=== PATIENT | male | born 1960 | race Caucasian/White ===

== ENCOUNTER 2016-08-12 03:56 | Observation (INO) ==
[2016-08-12] MEDS ORDERED: MORPHINE IV ONE (04:18)
[2016-08-12] MEDS ORDERED: ZOFRAN IV ONE (04:19)
[2016-08-12] MEDS ORDERED: TORADOL ONE (04:37)
[2016-08-12] MEDS ORDERED: NS 1,000 ML ONE (04:37)
[2016-08-12] MEDS ORDERED: DILAUDID ONE (04:38)
[2016-08-12 04:40] LABS: MANUAL DIFF NEEDED? NO
[2016-08-12 04:40] LABS: URINE CULTURE NEEDED? NO; URINE MICRO REVIEW NEEDED? NO; URINE SOURCE CLEAN CATCH
[2016-08-12] MEDS ORDERED: OFIRMEV 1000 MG/ISOTONIC SOLN 1,000 MG/100 ML BOTTLE ONE (04:43)
[2016-08-12] MEDS ORDERED: DILAUDID IV ONE ×2 (04:47→04:50)
[2016-08-12 04:48] LABS: BASO% 0.4 % (0.0-0.8); EOS% 3.6 % (0.0-10.0); HEMATOCRIT 45.2 % (42.0-52.0); HEMOGLOBIN 15.6 g/dL (14.0-18.0); IMM GRAN# 0.03 X1000 (0.0-0.04); IMM GRAN% 0.3 % (0.0-0.5); LYMPH# 2.02 X1000 (1.2-3.4); MCH 31.3 PG (27-31); MCHC 34.5 g/dL (33-37); MCV 90.6 FL (81-99); MONO# 1.19 X1000 (0.11-0.59); MONO% 10.6 % (1.7-9.3); MPV 9.8 FL (7.4-10.4); NEUT% 67.1 % (42.2-75.2); PLT 237 X1000 (130-400); RBC 4.99 XMIL (4.7-6.1)
[2016-08-12] MEDS ORDERED: NS 1,000 ML IV ONE (04:48)
[2016-08-12] MEDS ORDERED: TORADOL IV ONE (04:48)
[2016-08-12 04:49] LABS: BILIRUBIN URINE NEGATIVE (NEGATIVE); BLOOD URINE MODERATE (NEGATIVE); COLOR YELLOW; GLUCOSE URINE NEGATIVE (NEGATIVE); LEUKOCYTES URINE NEGATIVE (NEGATIVE); NITRITE URINE NEGATIVE (NEGATIVE); PH URINE 5.5; PROTEIN URINE TRACE mg/dL (NEGATIVE); SP GRAVITY URINE 1.026; TURBIDITY URINE CLEAR (CLEAR); UROBILINOGEN URINE 3 mg/dL (NORMAL)
[2016-08-12 04:50] LABS: UR EPITHELIAL CELLS <10 /HPF (<10); URINE BACTERIA NEGATIVE /HPF; URINE RBC <10 /HPF (<10); URINE WBC <10 /HPF (<10)
[2016-08-12] MEDS ORDERED: OFIRMEV 1000 MG/ISOTONIC SOLN 1,000 MG/100 ML BOTTLE IV ONE (04:50)
[2016-08-12] MEDS ORDERED: FLOMAX ONE (04:51)
[2016-08-12] MEDS ORDERED: FLOMAX PO ONE (04:56)
[2016-08-12] MEDS ORDERED: OXY IR PO PRN (04:57)
[2016-08-12] MEDS ORDERED: COMPAZINE IV PRN (04:57)
[2016-08-12 04:59] LABS: ALBUMIN 3.9 g/dL (3.5-5.0); CALCIUM 9.3 mg/dL (8.8-10.2); POTASSIUM 4.4 mmol/L (3.5-5.1); TOTAL BILIRUBIN 0.56 mg/dL (0.20-1.00); TOTAL PROTEIN 7.7 g/dL (6.3-8.3)
[2016-08-12] MEDS ORDERED: TORADOL IV SCH (05:00)
--- NOTE | 2016-08-12 05:22 | PROVIDER DOCUMENTATION ---
HPI-Male Problem - General Chief Complaint: Flank Pain Stated Complaint: KIDNEY STONE Time Seen by Provider: 08/12/16 04:18 Source: patient Unable to obtain history due to:: urgency Allergies/Adverse Reactions: Patient Allergies Allergy/AdvReac Type Severity Reaction Status Date / Time Sulfa (Sulfonamide Allergy Mild RASH Verified 08/07/16 15:42 Antibiotics) vancomycin Allergy Unknown Unknown Verified 08/07/16 15:42 Home Medications: Home Medication List Medication Instructions Recorded Confirmed Last Taken Type Albuterol 0.5% INH Conc [Albuterol 2.5 mg INH Q4H PRN PRN 08/07/16 08/07/16 Unknown History 0.5% INH Conc For Hyperkalemia] Aspirin 81 mg PO DAILY 08/07/16 08/07/16 08/07/16 History Hydrocodone/APAP 7.5 mg/325 mg 1 each PO Q6H PRN PRN #20 tablet 08/07/16 Unknown Rx [[place]-7.5] Ondansetron [Zofran] 4 mg PO Q6H PRN PRN #20 tablet 08/07/16 Unknown Rx Tamsulosin [Flomax] 0.4 mg PO DAILY #20 capsule 08/07/16 Unknown Rx Oxycodone/APAP 10 mg/325 mg 1 each PO Q6H PRN #12 tablet 08/10/16 Unknown Rx [Percocet-10] Promethazine [Phenergan] 25 mg PO Q6H PRN PRN #20 tablet 08/10/16 Unknown Rx - History of Present Illness-Male Nature of Presenting Problem: He was seen earlier this week with a 5.3 sm obstructing kidney stone, referred to Urology,,,,,,,,,,,,,,,,,,,,,,,,,,,,,,,,(Dr. Rivera) but could not be seen due to insurance issues. Tonight he has developed extreme pain, diaphoresis, vomiting , etc. Location of Complaint: reports: left flank Radiation: reports: urethral, scrotal Quality of Pain: reports: sharp, tearing Severity in ED: reports: severe Onset/Duration: reports: just prior to arrival Timing: reports: still present Context/Activities at Onset: reports: none Urinary Symptoms: reports: urgency Associated Symptoms: reports: diaphoresis, nausea Similar Symptoms Previously?: Yes Recently seen or treated by another doctor?: Yes (see HPI) Review of Systems - Adult - REVIEW OF SYSTEMS - ADULT Constitutional: reports: see HPI, chills Eyes: reports: no symptoms reported Ears, Nose, Mouth & Throat: reports: no symptoms reported Cardiovascular: reports: no symptoms reported Respiratory: reports: no symptoms reported Gastrointestinal: reports: no symptoms reported Genitourinary: reports: no symptoms reported Musculoskeletal: reports: no symptoms reported Integumentary: reports: no symptoms reported Neurological: reports: no symptoms reported Psychiatric: reports: no symptoms reported Endocrine: reports: no symptoms reported Hematologic/Lymphatic: reports: no symptoms reported Allergic/Immunologic: reports: no symptoms reported Past History - Adult - PAST MEDICAL HISTORY-ADULT Review of Records: reports: Old Records Reviewed, Nursing Assessment Review Major Childhood Illnesses: reports: denies history Cardiovascular: reports: denies history Respiratory: reports: denies history Gastrointestinal: reports: denies history Genitourinary: reports: kidney stones Musculoskeletal: reports: denies history Neurological: reports: denies history Endocrine/Immune: reports: denies history Other Conditions: reports: denies history - PRIOR SURGERIES/PROCEDURES Surgical/Procedure History: reports: reviewed, not pertinent - IMMUNIZATION STATUS Childhood Immunizations: See Nurse Assessment Flu Vaccine: See Nurse Assessment - FAMILY HISTORY Family History: reviewed, not pertinent Physical Exam-General - PHYSICAL EXAM-ADULT Initial Vital Signs Reviewed: Yes - CONSTITUTIONAL General Appearance: severe distress, obese - EYES Eyes: PERRL/EOMI, pink conjunctivae - HEAD, EARS, NOSE, MOUTH & THROAT HENMT: normocephalic/atraumatic - NECK Neck: non-tender, full range of motion, supple - RESPIRATORY Respiratory: chest non-tender, lungs clear, normal breath sounds - CARDIOVASCULAR Cardiovascular: normal peripheral pulses, regular rate, rhythm, no edema - GASTROINTESTINAL (ABDOMEN) Abdominal Exam: normal bowel sounds, guarding, tenderness - MUSCULOSKELETAL Back Exam: normal inspection, CVA tenderness. negative: no CVA tenderness Extremity: normal range of motion, no pedal edema Peripheral Pulses: radial (R): 3+, radial (L): 3+ - SKIN Integumentary: diaphoresis - NEUROLOGIC Neurologic: grossly normal - PSYCHIATRIC Psych/Mental Status: normal mood/affect Progress - PLAN OF CARE/RESULTS Progress/Plan/Lab Results: Vital Signs - 8 hr 08/12/16 03:59 Temperature 97.8 F Pulse Rate 83 Respiratory Rate 20 Blood Pressure 170/92 O2 Sat by Pulse Oximetry 93 L Laboratory Results - last 24 hr 08/12/16 08/12/16 08/12/16 04:11 04:11 04:29 WBC 11.24 H RBC 4.99 Hgb 15.6 Hct 45.2 MCV 90.6 MCH 31.3 H MCHC 34.5 RDW Std Deviation 12.7 Plt Count 237 MPV 9.8 Immature Gran % (Auto) 0.3 Neut % (Auto) 67.1 Lymph % (Auto) 18.0 L [place] % (Auto) 10.6 H Eos % (Auto) 3.6 Baso % (Auto) 0.4 Immature Gran # (Auto) 0.03 Neut # (Auto) 7.56 H Lymph # (Auto) 2.02 [place] # (Auto) 1.19 H Eos # (Auto) 0.40 Baso # (Auto) 0.04 Sodium 142 Potassium 4.4 Chloride 101 Carbon Dioxide 24 L Anion Gap 17 BUN 14 Creatinine 1.3 H Estimated GFR/1.73 m2 58 BUN/Creatinine Ratio 11 Glucose 119 H Calculated Osmolality 285 Calcium 9.3 Total Bilirubin 0.56 AST 38 H ALT 38 Alkaline Phosphatase 78 Total Protein 7.7 Albumin 3.9 Globulin 3.8 Albumin/Globulin Ratio 1.0 Urine Source CLEAN CATCH Urine Color YELLOW Urine Turbidity CLEAR Urine pH 5.5 Ur Specific [place] 1.026 Urine Protein TRACE A Ur Glucose (Stick) NEGATIVE Ur Ketones (Stick) TRACE A Urine Blood MODERATE A Urine Nitrite NEGATIVE Urine Bilirubin NEGATIVE Urobilinogen Dipstick 3 A Urine Leukocytes NEGATIVE Urine WBC (Auto) <10 Urine RBC (Auto) <10 U Epithel Cells (Auto) <10 Urine Bacteria (Auto) NEGATIVE Orders Category Date Time Status Admit - [facility] Routine AdmDCTranf 08/12/16 04:57 Ordered Activity - Up with Assistance ORDERED Care 08/12/16 04:57 Active Apply Mechanical Device [QM] ORDERED Care 08/12/16 04:57 Active Intake and Output-Strict ORDERED Care 08/12/16 04:57 Active Nursing- MD Consult Request ROUTINE Care 08/12/16 04:58 Active Vital Signs Order Q 8-HR ASSESS Care 08/12/16 04:57 Active Physician/Provider Consults Routine Cons 08/12/16 04:57 Ordered NPO Diet 08/12/16 04:57 Active BASIC METABOLIC PANEL [CHEM] Routine Lab 08/13/16 06:00 Ordered CBC WITH DIFF [HEME] Routine Lab 08/13/16 06:00 Ordered CBC WITH ELECTRONIC DIFF [HEME] Stat Lab 08/12/16 04:11 Completed COMPREHENSIVE METABOLIC PANEL [CHEM] Stat Lab 08/12/16 04:11 Completed UA NIMS W/REFLEX CULT [URINALYSIS] Stat Lab 08/12/16 04:29 Completed 0.9% Sodium Chloride Inj [Ns] 1,000 ml Med 08/12/16 04:37 Discontinued .ROUTE As Directed 0.9% Sodium Chloride Inj [Ns] 1,000 ml Med 08/12/16 04:57 Active IV 175 mls/hr 0.9% Sodium Chloride Inj [Ns] 1,000 ml Med 08/12/16 04:48 Active IV 999 mls/hr Acetaminophen [Ofirmev 1000 mg/Isotonic Soln] Med 08/12/16 04:43 Discontinued 1,000 mg in 100 ml .ROUTE As Directed Acetaminophen [Ofirmev 1000 mg/Isotonic Soln] Med 08/12/16 04:50 Discontinued 1,000 mg in 100 ml IV NOW Acetaminophen [Ofirmev 1000 mg/Isotonic Soln] Med 08/12/16 11:00 Active 1,000 mg in 100 ml IV Q6H Hydromorphone [Dilaudid] Med 08/12/16 04:57 Active 1 - 2 mg IV Q2H PRN PRN Hydromorphone [Dilaudid] Med 08/12/16 04:38 Discontinued 1 mg .ROUTE .STK-MED ONE Hydromorphone [Dilaudid] Med 08/12/16 04:47 Discontinued 1 mg IV NOW ONE Hydromorphone [Dilaudid] Med 08/12/16 04:50 Discontinued 1 mg IV NOW ONE Ketorolac [Toradol] Med 08/12/16 04:37 Discontinued 15 mg .ROUTE .STK-MED ONE Ketorolac [Toradol] Med 08/12/16 04:48 Discontinued 15 mg IV NOW ONE Ketorolac [Toradol] Med 08/12/16 05:00 Discontinued 15 mg IV Q6H Ketorolac [Toradol] Med 08/12/16 11:00 Active 15 mg IV Q6H Morphine Med 08/12/16 04:18 Discontinued 8 mg IV NOW ONE Ondansetron [Zofran] Med 08/12/16 04:57 Active 4 mg IV Q4H PRN PRN Ondansetron [Zofran] Med 08/12/16 04:19 Discontinued 8 mg IV NOW ONE Oxycodone I.r. [Oxy Ir] Med 08/12/16 04:57 Active 10 mg PO Q3H PRN PRN Prochlorperazine [Compazine] Med 08/12/16 04:57 Active 10 mg IV Q4H PRN PRN Tamsulosin [Flomax] Med 08/12/16 04:51 Discontinued 0.4 mg .ROUTE .STK-MED ONE Tamsulosin [Flomax] Med 08/12/16 18:00 Active 0.4 mg PO BID@0600,1800 Tamsulosin [Flomax] Med 08/12/16 04:56 Discontinued 0.4 mg PO NOW ONE Transfer/Admit Order [TRANSFER] Routine Transfer 08/12/16 05:03 Ordered Result Diagrams: 08/12/16 04:11 08/12/16 04:11 - CONSULTS/PCP/HOSPITALIST Notification Time Discussed: 04:00 Consult Disposition: Will see in ED Departure - Departure Time of Disposition Decision: 05:00 DIAGNOSIS: Ureteral stone Disposition: ADMITTED INPATIENT 09 Certified Medical Emergency: Emergent Condition: Fair Referrals and Follow-Ups: Matthieu Liang MD [Primary Care Provider] -
[2016-08-12] MEDS: NS 1,000 ML IV SCH ×3 (05:51→14:31)
--- NOTE | 2016-08-12 05:57 | HISTORY AND PHYSICAL ---
REASON FOR ADMISSION: Four day history of progressively worsening left flank pain. HISTORY OF PRESENT ILLNESS: Mr. Cresencio Diaz is a 56-year-old man who was last admitted here a while back, 4 years ago, for a pneumonia complicated with pneumothorax x2. He comes in today complaining of a 4-5 day history of left flank pain radiating to his groin. He said the pain is crampy to sharp in quality. He was seen in [place] ER yesterday and referred to follow up with one of our local urologists. On arrival there, he was told that his insurance was not accepted by the urologist and then he went home. He said the pain got so unbearable that he had to come back to the ER in the early hours of this morning. He has vomited twice as a result of his pain. He denies any fever or chills. No hematuria or dysuria. No GI complaints. No cardiorespiratory complaints. He said the pain is so unbearable that he is unable to keep still and find a comfortable position. Renal CT scan done on 08/07/2016 showed an obstructing left proximal ureter stone. REVIEW OF SYSTEMS: Twelve system review is negative. Positive findings per HPI. ALLERGIES: Sulfa, vancomycin. MEDICATIONS: He takes albuterol p.r.n., aspirin 81 mg daily, [place] 7.5 mg q.6, Zofran 4 mg q.6. He has also been given oxycodone 10 mg p.r.n. and Phenergan 25 mg daily, with Flomax 0.4 mg 4 or 5 days ago which he has been taking for this kidney stone. PAST SURGICAL HISTORY: He has had ORIF of his left foot many years ago. SOCIAL HISTORY: Smokes about 1 pack of cigarettes a day. No alcohol or drug use. FAMILY HISTORY: Only notable for heart disease. No diabetes. LAB WORK: White count is 11,000, hemoglobin and hematocrit 15 and 45, platelets 237,000. Urinalysis just shows moderate blood but otherwise no other findings of note. CT scan done on 08/07/2016, see above. PHYSICAL EXAMINATION: GENERAL: He is a middle-aged, man who is in extreme distress, almost to the point of crying. VITAL SIGNS: Blood pressure is 134/70, his heart rate is 92. He is breathing at 16 per minute. He is afebrile. He is alert and oriented to person, place, and time. He is very diaphoretic. HEENT: Head is normocephalic, atraumatic. Eyes: [place], EOMI. ENT and oropharyngeal exam is grossly normal. No central cyanosis. NECK: Supple. No JVD or carotid bruit. No thyromegaly. CHEST: Clear to auscultation. Good air entry in both lung meade. CARDIOVASCULAR: First and second heart sounds heard. No gallops, murmurs, or rubs. Rhythm is regular. ABDOMEN: Protuberant and soft. No focal areas of tenderness. I did not check for left CVA tenderness because the patient was in extreme pain. RECTAL: Examination is deferred. EXTREMITIES: No edema, clubbing, or peripheral cyanosis. NEUROLOGICAL: Examination is grossly intact. No focal deficits. SKIN: Intact with no breakdown, lesions, or erythema. MUSCULAR: Examination is grossly normal. ASSESSMENT: 1. Left obstructing ureteral stone. 2. Chronic obstructive pulmonary disease. 3. Tobacco use. PLAN: At this time, discussed the case with Dr. Sharpe who will be by to see the patient in a few hours to see how he can remedy the patient's pain. He is going to be treated with Toradol, Dilaudid, and Ofirmev with Flomax to control his symptoms. Aggressive IV fluid resuscitation has been initiated. Labs, CBC and CMP have been ordered and will need to be followed. Hopefully, if lithotripsy or stent is placed, then he can be discharged home either later today or tomorrow morning. cc: MD Matthieu Peters MD MTDD
[2016-08-12] MEDS: DILAUDID IV PRN ×5 (06:23→22:16)
[2016-08-12] MEDS ORDERED: FLOMAX PO SCH (09:00)
[2016-08-12] MEDS: OFIRMEV 1000 MG/ISOTONIC SOLN 1,000 MG/100 ML BOTTLE IV SCH ×3 (11:36→22:17)
[2016-08-12] MEDS: TORADOL IV SCH ×3 (11:44→22:17)
[2016-08-12] MEDS ORDERED: XYLOCAINE 2% JELLY ONE (12:07)
[2016-08-12] MEDS ORDERED: KEFZOL 1 GM/D5W 1 GM/50 ML IVPB ONE (12:51)
[2016-08-12] MEDS ORDERED: DIPRIVAN 1% ONE (15:29)
[2016-08-12] MEDS ORDERED: XYLOCAINE-MPF 2% ONE (15:37)
[2016-08-12] MEDS ORDERED: LR 1,000 ML ONE (15:38)
[2016-08-12] MEDS: FLOMAX PO SCH (17:00)
--- NOTE | 2016-08-12 17:25 | OPERATIVE NOTE ---
PROCEDURE DATE: 08/12/2016 PREOPERATIVE DIAGNOSIS: Left proximal ureteral stone with hydronephrosis and renal colic. POSTOPERATIVE DIAGNOSIS: Left proximal ureteral stone with hydronephrosis and renal colic, with the exception that the stone had migrated to the distal ureter just immediately at or above the ureteral orifice. PROCEDURE PERFORMED: Cystoscopy with stone basket manipulation of a left distal ureteral calculus. No stent was placed as originally planned. SURGEON: Moises Sharpe DO. ANESTHESIA: General LMA. COMPLICATIONS: None. DRAINS: None. SPECIMEN: Stone. DISPOSITION: Stable. BLOOD LOSS: Hematuria. FINDINGS: As described in the body of the dictation and the assistance for the OR staff. COURSE OF PROCEDURE: The patient was placed in the dorsal lithotomy position, prepped and draped per routine. Time-out procedure performed. General anesthesia via LMA transpired. After prep and drape, a time-out procedure, urethral cystoscopy transpired. Meatus, distal urethra, membranous urethra, sphincter and prostate were grossly normal. No significant trabeculations were noted. Upon entering the urinary bladder both ureters were normally placed on the interureteric ridge and I saw no tumors within the urinary bladder, no bladder stones. Evidence of a stone starting to peek at the meatus but too large to pass was noted endoscopically with a cystoscope. Pursuant to that, gentle pressure against it revealed that it could be pushed slightly aft. Pursuant to that, a 4 wire tipless stone basket was requested and this was negotiated around the stone in the distal ureter, whereupon the stone was grasped in the 4 wire basket. The stone was extracted, sent for pathologic examination as specimen. Because the orifice seemed open postprocedurally the decision was made not to put in a stent and no additional evidence of any bleeding was noted at that point. Bladder was drained of its contents. Patient was awakened and sent to recovery stable. He will reside here in the hospital under the care of the hospitalists who are the attending, to be discharged at their discretion at some future date. The patient did very well, having resolved the stone. Unless he has trouble there is no strong reason for me to need to see him in the office. Those orders were written. cc: Moises Sharpe DO
[2016-08-12] MEDS: ZOFRAN IV PRN (19:44)
--- NOTE | 2016-08-13 02:26 | PROGRESS NOTE ---
DATE: 08/12/2016 ADDENDUM REPORT: The patient is still having pain, discomfort. We are going to watch him through the morning and likely discharge tomorrow. He is status post stone extraction, no stent was placed. If his pain is stable, we can anticipate discharge tomorrow. cc: Nick Alonzo MD
[2016-08-13] MEDS: DILAUDID IV PRN ×8 (02:36→22:05)
[2016-08-13] MEDS: FLOMAX PO SCH ×2 (05:28→18:24)
[2016-08-13 06:46] LABS: MANUAL DIFF NEEDED? NO
[2016-08-13 06:54] LABS: BASO% 0.4 % (0.0-0.8); EOS# 0.33 X1000 (0.0-0.7); EOS% 5.9 % (0.0-10.0); HEMATOCRIT 40.7 % (42.0-52.0); HEMOGLOBIN 13.4 g/dL (14.0-18.0); LYMPH# 2.34 X1000 (1.2-3.4); LYMPH% 41.6 % (20.5-51.1); MCH 31.3 PG (27-31); MCHC 32.9 g/dL (33-37); MCV 95.1 FL (81-99); MONO# 0.53 X1000 (0.11-0.59); MONO% 9.4 % (1.7-9.3); MPV 9.8 FL (7.4-10.4); NEUT% 42.7 % (42.2-75.2); PLT 175 X1000 (130-400); RBC 4.28 XMIL (4.7-6.1)
[2016-08-13 07:25] LABS: AGAP 9; BUN 16 mg/dL (8-22); CALCIUM 8.3 mg/dL (8.8-10.2); CHLORIDE 107 mmol/L (98-107); COSMO 285; SODIUM 142 mmol/L (136-145); TCO2 26 mmol/L (25-35)
[2016-08-13 07:31] LABS: POTASSIUM 5.1 mmol/L (3.5-5.1)
[2016-08-13] MEDS ORDERED: TORADOL IV PRN (08:43)
[2016-08-13 11:18] LABS: URINE CULTURE NEEDED? NO; URINE MICRO REVIEW NEEDED? NO; URINE SOURCE CLEAN CATCH
[2016-08-13 11:46] LABS: BILIRUBIN URINE NEGATIVE (NEGATIVE); COLOR YELLOW; GLUCOSE URINE NEGATIVE (NEGATIVE); SP GRAVITY URINE 1.016; TURBIDITY URINE CLEAR (CLEAR); UR EPITHELIAL CELLS <10 /HPF (<10); URINE BACTERIA NEGATIVE /HPF; URINE RBC <10 /HPF (<10); URINE WBC <10 /HPF (<10)
[2016-08-13 11:47] LABS: BLOOD URINE SMALL (NEGATIVE); PROTEIN URINE NEGATIVE (NEGATIVE); UROBILINOGEN URINE NORMAL (NORMAL)
[2016-08-13 11:48] LABS: LEUKOCYTES URINE NEGATIVE (NEGATIVE); NITRITE URINE NEGATIVE (NEGATIVE)
[2016-08-13] MEDS ORDERED: DITROPAN PO ONE (14:05)
[2016-08-13] MEDS: B & O 16A SUPP PR ONE ×2 (14:36→17:02)
[2016-08-13] MEDS: NS 1,000 ML IV SCH ×2 (14:36→20:33)
[2016-08-13] MEDS ORDERED: RELISTOR SUBQ ONE (15:11)
--- NOTE | 2016-08-13 15:13 | Diag Imaging Result Document ---
PROCEDURE NAME: ABDOMEN FLAT/UPRIGHT - 08/13/2016 ABDOMEN, 2 VIEWS: COMPARISON: CT abdomen and pelvis 08/07/2016. FINDINGS: The obstructing left proximal-mid ureter stone is no longer evident. No bowel obstruction or free air. IMPRESSION: No acute disease.
--- NOTE | 2016-08-13 18:08 | Diag Imaging Result Document ---
PROCEDURE NAME: RENAL STONE SEARCH - 08/13/2016 CT ABDOMEN AND PELVIS WITHOUT ORAL OR INTRAVENOUS CONTRAST: TECHNIQUE: Dose reduction protocol. COMPARISON: 08/07/2016. FINDINGS: There are several calcified stones within the gallbladder. The gallbladder is contracted. Normal spleen and adrenal glands. Normal noncontrasted pancreas and liver. No renal stones. No perinephric inflammation on the current exam. No hydrocephalus on the current study. No aortic aneurysm. No bowel obstruction. Normal appendix. No abscess. The urinary bladder is not distended. The prostate is not enlarged. There are small pelvic and inguinal lymph nodes as well as small iliac lymph nodes. There are several scattered diverticula. IMPRESSION: No renal stone, ureteral stone, or hydronephrosis on the current exam. The results were called to Dr. Sharpe at 5:50 p.m.
[2016-08-13] MEDS ORDERED: NS 500 ML IV SCH (18:20)
[2016-08-13] MEDS ORDERED: RESTORIL PO PRN (18:20)
[2016-08-13] MEDS ORDERED: SODIUM CHLORIDE 0.9% INJ SCH ×2 (18:30)
[2016-08-13] MEDS ORDERED: LEVAQUIN 500 MG/D5W 500 MG/100 ML IVPB IV SCH (18:30)
[2016-08-13] MEDS ORDERED: PROTONIX IV SCH ×2 (18:30)
--- NOTE | 2016-08-13 20:04 | Diag Imaging Result Document ---
PROCEDURE NAME: THORACIC SPINE - 08/13/2016 THORACIC SPINE AP AND LATERAL, 3 VIEWS: FINDINGS: There is mild scoliosis. No compressed vertebra. No subluxation. There are tiny degenerative bone spurs. IMPRESSION: Mild scoliosis with mild degenerative changes.
[2016-08-13] MEDS: MIRALAX PO SCH (20:32)
[2016-08-13] MEDS: PERCOCET-10 PO PRN (20:32)
[2016-08-13] MEDS: LIDODERM TOP SCH (20:32)
[2016-08-13] MEDS: LACTULOSE PO SCH (20:32)
[2016-08-14] MEDS: PERCOCET-10 PO PRN (01:15)
[2016-08-14] MEDS: DILAUDID IV PRN ×3 (05:41→13:46)
[2016-08-14] MEDS: FLOMAX PO SCH ×2 (05:41→18:18)
[2016-08-14] MEDS: NS 1,000 ML IV SCH ×3 (05:42→18:18)
[2016-08-14 06:33] LABS: HEMATOCRIT 40.2 % (42.0-52.0); MCH 31.1 PG (27-31); MCHC 32.3 g/dL (33-37); MCV 96.2 FL (81-99); MPV 9.5 FL (7.4-10.4); RBC 4.18 XMIL (4.7-6.1)
[2016-08-14 06:45] LABS: AGAP 10; ALBUMIN 3.3 g/dL (3.5-5.0); ALKALINE PHOSPHATASE 59 U/L (32-122); BUN 14 mg/dL (8-22); CALCIUM 8.4 mg/dL (8.8-10.2); CHLORIDE 106 mmol/L (98-107); COSMO 285; GOT 35 U/L (10-34); GPT 32 U/L (10-44); POTASSIUM 5.2 mmol/L (3.5-5.1); SODIUM 143 mmol/L (136-145); TCO2 27 mmol/L (25-35); TOTAL BILIRUBIN 0.36 mg/dL (0.20-1.00); TOTAL PROTEIN 6.4 g/dL (6.3-8.3)
[2016-08-14] MEDS: ZOFRAN IV PRN ×2 (08:09→15:03)
[2016-08-14 08:16] VITALS: BP 162/93
[2016-08-14] MEDS: LIDODERM TOP SCH (10:23)
[2016-08-14] MEDS: LACTULOSE PO SCH (10:23)
[2016-08-14] MEDS: MIRALAX PO SCH (10:23)
--- NOTE | 2016-08-14 10:30 | Diag Imaging Result Document ---
PROCEDURE NAME: CT ABD/PELVIS W/ IV CONT ONLY - 08/14/2016 CT ABDOMEN AND PELVIS WITH INTRAVENOUS CONTRAST: COMPARISON: 08/13/2016. FINDINGS: Trace left pleural fluid and pleural thickening similar to prior study. There are several calcified stones within the gallbladder. The gallbladder is partly contracted. Normal spleen and adrenal glands. Normal pancreas. There is mild fatty infiltration of the liver. Normal enhancement of the kidneys. IMPRESSION: Stable CT of the abdomen and pelvis.
--- NOTE | 2016-08-14 11:05 | Diag Imaging Result Document ---
PROCEDURE NAME: CERVICAL SPINE 2-VIEWS - 08/14/2016 CERVICAL SPINE AP AND LATERAL, TWO VIEWS: FINDINGS: There is good alignment to the cervical spine. No subluxation. No bone spurring. Questionable mild precervical soft tissue swelling anterior to the C2 vertebra. There are infiltrates in the upper lungs. No foreign body. IMPRESSION: Questionable mild precervical soft tissue swelling. If there is clinical suspicion for a soft tissue abnormality then a CT of the neck with contrast is suggested.
[2016-08-14] MEDS ORDERED: GOLYTELY PO ONE (13:12)
[2016-08-14] MEDS ORDERED: RELISTOR SUBQ ONE (13:52)
[2016-08-14] MEDS ORDERED: MORPHINE IV PRN (13:52)
[2016-08-14] MEDS ORDERED: BENTYL PO PRN (14:09)
--- NOTE | 2016-08-14 14:14 | PROGRESS NOTE ---
DATE: 08/14/2016 SUBJECTIVE: The patient is still having pain although much improved. OBJECTIVE: Blood pressure 162/93, heart rate is 61, respiratory rate 18, temperature 97.6 degrees, 98% on room air.Cardiovascular: Regular rate and rhythm. Pulmonary: Bilateral breath sounds. Clear to auscultation. GI: Soft, nontender, nondistended. Bowel sounds are positive. LABORATORY DATA: White count 5, hemoglobin and hematocrit 13 and 40. Platelets 168,000. Potassium 5.2, AST of 35, albumin of 3.3. PROBLEM LIST: 1. Right ureterolithiasis. He is status post stone removal. He seems to be stable. There were multiple issues yesterday with persistent pain knee, he ended up getting a repeat scan which was completely normal. 2. Left flank pain, unclear source. He is extremely constipated so we will continue bowel regimen according to GI consult because he had some protracted nausea and vomiting. He is on MiraLAX and lactulose, I think he is getting GoLYTELY at this point. We have empirically started antibiotics but I am not sure if he really needs any of that at this point, because I do not think there is any active infection. His CT scan today was unremarkable. His plain films were unremarkable. DISPOSITION: I anticipate if we can help with his constipation and possible irritable bowel symptoms I think he could probably go home tomorrow. We will see how GI looks it his information. cc: Nick Alonzo MD
[2016-08-14] MEDS ORDERED: BENTYL PO SCH (16:00)
--- NOTE | 2016-08-14 22:52 | CONSULTATION ---
DATE OF CONSULTATION: 08/14/2016 ATTENDING PHYSICIAN: Dr. Alonzo. PRIMARY CARE: Dr. Matthieu Liang. REASON CONSULTATION: Abdominal pain. HISTORY OF PRESENT ILLNESS: Mr. Diaz is 56-year-old male who was admitted on 08/12/2016 with 4 days of progressively worsening left flank pain. Imaging showed left obstructing ureteral stone. He underwent cystoscopy with stone basket manipulation of left distal ureteral calculus. The stone was extracted by Dr. Sharpe. Since the procedure patient has been on pain medication for ongoing pain and he had a repeat CT scan done on 08/14/2016, it showed several calcified stones in the gallbladder and the gallbladder is partially contracted, normal spleen, adrenal glands, normal pancreas, mild fatty infiltration liver, normal enhancement of the kidneys. A CT scan done on 08/13/2016 showed small pelvic and inguinal lymph nodes and the small iliac lymph nodes and scattered several diverticula in the colon and the patient he feels constipated and has not had a bowel movement for few days until today. He also complains of nausea and cramping in the periumbilical and left mid and left lower quadrant. PAST MEDICAL HISTORY: Kidney stones, BPH, chronic pain, arthritis. ALLERGIES TO: Sulfa and vancomycin. PAST SURGICAL HISTORY: Open reduction internal fixation left foot many years ago, recent cystoscopy with stone extraction by Dr. Sharpe. SOCIAL HISTORY: Smokes 1 pack a day for many years. Denies alcohol or illicit drugs. FAMILY HISTORY: Significant for heart disease. No history of colon cancer family. MEDICATIONS: In the hospital include ketorolac, lactulose 30 mL b.i.d., lidocaine 5% patch, IV fluids, Zofran, oxycodone/acetaminophen, Protonix, Compazine, Flomax, temazepam, Relistor once, oxybutynin 2.5 mg p.o. once, dicyclomine 10 p.o. t.i.d., morphine. He is currently on regular diet but I switched him to liquid diet. REVIEW OF SYSTEMS: Denies any fevers, rigors or chills, chest pain, shortness of breath, dyspnea at rest. Denies any genitourinary complaints today although he had a recent cystoscopy with stone extraction 2 days ago. He denies any nausea complaints. He denies any nausea or vomiting, vomiting blood or passing blood in the stools. He does complain of constipation and 1 bowel movement today which is very small. PHYSICAL EXAM: Vital Signs: Temperature 97.6, pulse rate 61, respiratory 18, blood pressure 162/93, saturating 90% on nasal cannula, body weight of 280 pounds, BMI of 35 kg per meter squared. General Appearance: Obese lying in bed in mild distress because of abdominal pain. HEENT: Pale conjunctivae. No icterus. Pupils equal, react to light. Neck: Supple. Chest: Decreased breath sounds. Cardiac: Regular rhythm. No murmur. Abdomen: Obese, discomfort and tenderness in the left middle and left lower quadrant and tympanic on percussion , hypoactive bowel sounds. No guarding noted. Extremities: No cyanosis, clubbing. Neurologic: Alert, awake, oriented. LABS: Hemoglobin and hematocrit is 13 and 40.2, white count 5.7, platelet count of 168,000, MCV of 96.2. Sodium 142, potassium 5.2, chloride 106, bicarb of 27, anion gap 10, BUN of 14, creatinine 0.9, glucose of 85, calcium is 8.4, total bilirubin is 0.36, AST 35, ALT 32, alkaline phosphatase 59, total protein 6.4, albumin of 3.3, CRP 6.62, sedimentation rate 16. Urinalysis showing small blood, trace protein. Imaging as described on the HPI. IMPRESSION AND PLAN: 1. Left ureteral stone status post cystoscopy with stone extraction Dr. Sharpe on 08/12/2016. 2. Continued left-sided abdominal pain going to the back unclear etiology. 3. Severe constipation. 4. Obesity and body mass index of 35. 5. Mild liver enzymes suspect fatty liver disease. 6. Imaging also confirmed fatty infiltration liver. RECOMMENDATIONS: 1. Will start the patient on GoLYTELY 1 gallon to help with the colonic lavage, will give him soapsuds enema twice now. He will continue MiraLAX twice a day and lactulose twice a day. We will hold MiraLAX and lactulose for more than 3 bowel movements 24 hours. He has already received 2 doses of Relistor on 2 consecutive days with incomplete relief. We will make Bentyl as needed. 2. Will check acute hepatitis panel and DONYA and chronic liver disease workup. 3. Patient was will need a colonoscopy as an outpatient in 2-4 weeks after discharge once he heals from the recent stone extraction surgery. 4. The patient has chronic constipation. The patient will benefit from MiraLAX at home. 5. Patient to continue GI prophylaxis with Protonix once daily. Will change the diet to liquid diet for now and will gradually advance as tolerated and patient was also counseled to lose weight. 6. The above plan discussed the patient and all questions. cc: MD Nick Edmondson MD MTDD
--- NOTE | 2016-08-26 14:26 | DISCHARGE SUMMARY ---
ADMISSION DATE: 08/12/2016 DISCHARGE DATE: 08/14/2016 DISCHARGE DIAGNOSES: 1. Right ureterolithiasis. 2. Left flank pain with severe constipation and possible irritable bowel syndrome. HOSPITAL COURSE: Please refer to complete H P dictated on admission. It looks like H P was done by Dr. Sharpe. In any case, he had left flank pain. He was admitted. He underwent stone removal per Dr. Sharpe. This was on the . He had a left proximal ureteral stone with hydronephrosis and renal colic. Cystoscopy showed stone basket manipulation. No stents were placed because the ureter was patent. On the , I saw the patient postoperatively. He seemed to be more comfortable. However he was not comfortable enough to go home by his own admonition. He was still having some pain. The subsequent day the patient was still having severe flank pain and I was called several times to see him. His labs are unremarkable. I have evaluated the patient. It was unclear of the source. I ended up getting a repeat renal colic CT scan. I had discussed the case twice with Dr. Sharep over the phone. He felt that the patient did not have a surgical issue and that he did not need to re-evaluate the patient, even though he had a little bit of hematuria. But in any case, repeat scan did not show anything involving his ureter. The family and patient were upset. They had requested to be transferred to another hospital for a 2nd opinion. That was before we had the repeat scan. I indicated there was no surgical need to be transferred and it would be difficult for another surgeon to pick him up, in any case, because they typically do not like to evaluate a patient who may have had complications although in this case there was no evidence of complications or anything going on with his ureteral issues. We repeated his CT scan with contrast this time which just showed constipation. It was really unremarkable. He did have some gallstones. We did some spinal films to evaluate for pain and that was pretty much unremarkable. The patient's pain did improve somewhat with GI treatment namely relief of his constipation. I even had a GI consultation. He recommended GoLYTELY and lactulose and there was some concern over a colonoscopy and a GI workup. The following day, the patient really wanted to go home. He did not want any other further treatments. He felt somewhat improved so he was discharged home. White count was normal at 5, hemoglobin and hematocrit 13 and 40. Platelets 168,000. Potassium a little bit up at 5.2. DISCHARGE MEDICATIONS: Albuterol, aspirin 81 daily, Zofran p.r.n., Percocet 10 mg 1 p.o. q.4 hours #15, Phenergan p.r.n. pain and Flomax 0.4 daily. DISCHARGE INSTRUCTIONS: He was told to return for worsening pain, nausea or vomiting. cc: MD Matthieu Zimmer MD
== END 2016-08-14 18:52 | disposition home or self-care (01) ==
LOC: ED 03:56 → 3N 04:57 → SUATTDRO 05:30 → INTOOBSV 13:30 → OBSVTOIN 13:30 → OPS 08-13 14:11
PROVIDERS: ADMIT Internal Medicine; ATTEND Internal Medicine